=== PATIENT | female | born 2000 | race Caucasian/White ===

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

== ENCOUNTER 2022-08-17 16:51 | Emergency (ER) | payer MEDICAID, OTHER ==
[~2022-08-17] VITALS: Ht 160 cm; Wt 81.2 kg
[2022-08-17 16:59] VITALS: BP 115/70
--- NOTE | 2022-08-17 19:22 | NUR ---
AMA CALIXTO examining patient.
[2022-08-17 19:52] LABS: BASOPHILS # (AUTO) 0.1 K/uL (0.00-0.22); BASOPHILS % (AUTO) 0.5 % (0.0-2.0); EOSINOPHILS # (AUTO) 0.2 K/uL (0-0.4); EOSINOPHILS % (AUTO) 1.6 % (0.0-4.0); HEMATOCRIT 38.4 % (36-48); LYMPHOCYTES # (AUTO) 2.7 K/uL (2.5-16.5); LYMPHOCYTES % (AUTO) 21.7 % (20.5-51.1); MEAN CORPUSCULAR HEMOGLOBIN 29 pg (27-31); MEAN CORPUSCULAR HGB CONC 34 g/dL (33-37); MEAN CORPUSCULAR VOLUME 86.5 fL (80-94); MONOCYTES # (AUTO) 1.1 K/uL (0.8-1.0); NEUTROPHILS # (AUTO) 8.3 K/uL (1.8-7.7); NEUTROPHILS % (AUTO) 67.2 % (42.2-75.2); PLATELET COUNT (AUTO) 324 K/uL (140-450); RED BLOOD CELL COUNT(AUTO) 4.44 MIL/uL (4.20-5.40); RED CELL DISTRIBUTION WIDTH 12.3 % (11.6-13.7); WHITE BLOOD COUNT (AUTO) 12.3 K/uL (4.5-11.0)
[2022-08-17 19:59] LABS: ALBUMIN 3.5 g/dL (3.4-5.0); ANION GAP 11.9 (8-16); CARBON DIOXIDE 28.1 mmol/L (21-32); CREATININE 0.7 mg/dL (0.6-1.3); TOTAL BILIRUBIN 0.3 mg/dL (0.0-1.0)
--- NOTE | 2022-08-17 21:42 | NUR ---
COVID-19, flu and strep swabs collected and sent to lab.
[2022-08-17 22:47] LABS: APPEARANCE,URINE CLEAR (CLEAR); BILIRUBIN,URINE NEGATIVE (NEGATIVE); BLOOD, URINE 2+ (NEGATIVE); COLOR,URINE YELLOW (YELLOW); LEUKOCYTE ESTERASE ,URINE NEGATIVE (NEGATIVE); NITRITE, URINE NEGATIVE (NEGATIVE); UGLUCOSE NEGATIVE (NEGATIVE)
--- NOTE | 2022-08-17 23:40 | NUR ---
PT TAKEN TO BED 2
[2022-08-17] MEDS ORDERED: CEFD300C3 PO (23:57)
[2022-08-17] MEDS ORDERED: NAPR-54 PO (23:57)
--- NOTE | 2022-08-22 16:56 | NUR ---
LATE ENTRY. RECEIVED POSITIVE THROAT CULTURE. FORM GIVEN TO DR PEÑA. TREATMENT APPROPRIATE. FORM PLACED IN BINDER
[2022-09-14] MEDS ORDERED: FLUC150T PO (18:02)
== END 2022-08-18 00:15 | disposition home or self-care (01) ==
LOC: MED 16:51
DX: J02.9 Acute pharyngitis, unspecified (principal); R10.31 Right lower quadrant pain; R05.9 Cough, unspecified; Z20.822 Contact with and (suspected) exposure to COVID-19; Z79.1 Long term (current) use of non-steroidal anti-inflammatories (NSAID); Z79.2 Long term (current) use of antibiotics
CPT/HCPCS: 36415; 80053; 81001; 81025; 83690; 85025; 87081; 87086; 99284

== ENCOUNTER 2022-09-11 04:25 | Emergency (ER) | payer OTHER ==
[~2022-09-11] VITALS: Ht 162.6 cm; Wt 79.4 kg
[~2022-09-11 04:25] MED LIST: CEFD300C3 PO; NAPR-54 PO
[2022-09-11 04:46] VITALS: BP 117/63
--- NOTE | 2022-09-11 04:49 | NUR ---
pt to lobby.
[2022-09-11 05:10] LABS: APPEARANCE,URINE SL CLOUDY (CLEAR); BILIRUBIN,URINE NEGATIVE (NEGATIVE); BLOOD, URINE 1+ (NEGATIVE); COLOR,URINE YELLOW (YELLOW); LEUKOCYTE ESTERASE ,URINE 1+ (NEGATIVE); NITRITE, URINE NEGATIVE (NEGATIVE); UGLUCOSE NEGATIVE (NEGATIVE)
[2022-09-11 05:16] LABS: RBC,URINE 0-5 /HPF (0-5)
--- NOTE | 2022-09-11 05:22 | NUR ---
PER LAB NOT ENOUGH URINE FOR GC, PT STATES SHE WILL DRINK MORE WATER AND LET US KNOW WHEN SHES ABLE TO URINATE.
--- NOTE | 2022-09-11 06:12 | NUR ---
Patient taken to bed 11.
--- NOTE | 2022-09-11 06:30 | NUR ---
Dr. Donahue examining patient.
--- NOTE | 2022-09-11 07:05 | NUR ---
Pelvic exam performed by Dr. Donahue with RUBEN Hunt at bedside for entire examination. Patient tolerated procedure well. Patient assisted to position of comfort after examination.
[2022-09-11] MEDS ORDERED: IBUP-2213 PO (08:56)
[2022-09-11] MEDS ORDERED: METR-435 PO (08:56)
[2022-09-11 09:21] VITALS: BP 123/60
--- NOTE | 2022-09-11 09:22 | NUR ---
Patient discharged with v/s stable. Written and verbal after care instructions given and explained. Patient alert, oriented and verbalized understanding of instructions. Ambulatory with steady gait. All questions addressed prior to discharge. ID band removed. Patient advised to follow up with PMD. Rx of IBUPROFEN, METRONIDAZOLE given. Patient educated on indication of medication including possible reaction and side effects. Opportunity to ask questions provided and answered.
[2022-09-14] MEDS ORDERED: FLUC150T PO (18:02)
--- NOTE | 2022-09-14 18:25 | NUR ---
LATE ENTRY. RECEIVED POSITIVE CULTURE RESULTS. FORM GIVEN TO DR MITCHELL. NEW RX OF DIFLUCAN SENT TO PTS [facility]ARM[facility]Y. DR MITCHELL ATTEMPTED TO CALL PT, NO ANSWER. 2ND ATTEMPT TO CALL PT AT [phone], LEFT MESSAGE TO RETURN CALL *START NEW RX AFTER METRONIDAZOLE.
== END 2022-09-11 09:21 | disposition home or self-care (01) ==
LOC: MED 04:25
DX: N76.0 Acute vaginitis (principal); B96.89 Other specified bacterial agents as the cause of diseases classified elsewhere; J45.909 Unspecified asthma, uncomplicated; F12.90 Cannabis use, unspecified, uncomplicated; Z79.899 Other long term (current) drug therapy; Z98.890 Other specified postprocedural states
CPT/HCPCS: 81001; 81025; 87070; 87086; 87205; 87210; 87491; 99283

== ENCOUNTER 2023-02-08 11:12 | Inpatient (IN) | payer OTHER ==
[~2023-02-08] VITALS: Ht 162.6 cm; Wt 85.7 kg
[~2023-02-08 11:12] MED LIST changes: +FLUC150T PO; +IBUP-2213 PO; +METR-435 PO
[2023-02-08 11:18] VITALS: BP 118/92; PULSE 63; RESP 14; TEMP 98.2; O2SAT 98
[2023-02-08 11:44] LABS: BASOPHILS # (AUTO) 0.1 K/uL (0.00-0.22); BASOPHILS % (AUTO) 0.4 % (0.0-2.0); EOSINOPHILS % (AUTO) 0.1 % (0.0-4.0); HEMATOCRIT 42.8 % (36-48); HEMOGLOBIN 14.5 g/dL (12.0-16.0); LYMPHOCYTES # (AUTO) 1.2 K/uL (2.5-16.5); LYMPHOCYTES % (AUTO) 5.6 % (20.5-51.1); MEAN CORPUSCULAR HEMOGLOBIN 29 pg (27-31); MEAN CORPUSCULAR HGB CONC 34 g/dL (33-37); MEAN CORPUSCULAR VOLUME 86.5 fL (80-94); MONOCYTES # (AUTO) 0.9 K/uL (0.8-1.0); MONOCYTES % (AUTO) 4.3 % (1.7-9.3); NEUTROPHILS # (AUTO) 19.9 K/uL (1.8-7.7); NEUTROPHILS % (AUTO) 89.6 % (42.2-75.2); PLATELET COUNT (AUTO) 307 K/uL (140-450); RED BLOOD CELL COUNT(AUTO) 4.95 MIL/uL (4.20-5.40); WHITE BLOOD COUNT (AUTO) 22.2 K/uL (4.5-11.0)
[2023-02-08 12:01] LABS: ANION GAP 10.2 (8-16); CALCIUM 9.4 mg/dL (8.5-10.1); CARBON DIOXIDE 25.4 mmol/L (21-32); CREATININE 0.7 mg/dL (0.6-1.3); POTASSIUM 3.6 mmol/L (3.5-5.1); TOTAL BILIRUBIN 0.4 mg/dL (0.0-1.0); TOTAL PROTEIN, SERUM 7.6 g/dL (6.4-8.2)
[2023-02-08] MEDS ORDERED: PROCHLORPERAZINE 10 MG/2 ML VIAL IVP ONE (12:20)
[2023-02-08] MEDS ORDERED: KETOROLAC 30 MG/ML VIAL IVP ONE (12:20)
[2023-02-08] MEDS ORDERED: diphenhydrAMINE 50 MG/ML VIAL IVP ONE (12:20)
[2023-02-08] MEDS ORDERED: NACL 0.9% 1,000 ML IV ONE ×2 (12:25→14:10)
[2023-02-08] MEDS ORDERED: MORPHINE SULFATE 4 MG/ML SYR IVP ONE (13:30)
[2023-02-08] MEDS ORDERED: PIPERACILLIN/TAZOBACTAM 3.375 GM in DEXTROSE 5% 50 ML IV ONE (13:30)
[2023-02-08] MEDS ORDERED: PIPERACILLIN/TAZOBACTAM 3.375 GM VIAL IV ONE ×2 (14:03→22:18)
[2023-02-08 14:23] LABS: INR 0.99 (0.8-1.2); PARTIAL THROMBOPLASTIN TIME 24.9 secs (22-35.6); PROTHROMBIN TIME 10.4 secs (10.8-13.4)
[2023-02-08 14:30] LABS: LACTIC ACID 1.2 mmol/L (0.4-2.0)
[2023-02-08] MEDS ORDERED: MORPHINE SULFATE 4 MG/ML SYR IVP PRN (15:45)
[2023-02-08] MEDS ORDERED: MAG SULF 2000 MG/WATER PREMIX 50 ML IV PRN (15:45)
[2023-02-08] MEDS ORDERED: ZOLPIDEM 5 MG TAB PO PRN (15:45)
[2023-02-08] MEDS ORDERED: KCL 20 MEQ IN 100 mL PREMIX 200 ML IV PRN (15:45)
[2023-02-08] MEDS ORDERED: ACETAMINOPHEN 325 MG TAB PO PRN (15:45)
[2023-02-08] MEDS ORDERED: HYDROcodone/APAP 5/325 MG 1 TAB TAB PO PRN (15:45)
[2023-02-08] MEDS ORDERED: POTASSIUM CHLORIDE 10 MEQ TABER PO PRN (15:45)
[2023-02-08] MEDS ORDERED: ONDANSETRON 4 MG/2 ML VIAL IVP PRN ×2 (15:45→17:05)
[2023-02-08] MEDS ORDERED: LORazepam 1 MG TAB PO PRN (15:45)
[2023-02-08] MEDS: DEXT 5% /NACL 0.9% 1,000 ML IV SCH ×2 (16:08→23:33)
[2023-02-08] MEDS ORDERED: fentaNYL citrate 0.05 MG/ML VIAL ONE (16:53)
[2023-02-08] MEDS ORDERED: SUCCINYLCHOLINE CHLORIDE 200 MG/10 ML VIAL IVP ONE (16:53)
[2023-02-08] MEDS ORDERED: PROPOFOL 200 MG/20 ML VIAL IV ONE (16:53)
[2023-02-08] MEDS ORDERED: diphenhydrAMINE 50 MG/ML VIAL IVP PRN (17:05)
[2023-02-08] MEDS ORDERED: HYDROmorphone 1 MG/ML AMP IVP PRN (17:05)
[2023-02-08] MEDS ORDERED: MEPERIDINE 25 MG/ML SYR IVP PRN (17:05)
[2023-02-08] MEDS: LACTATED RINGERS 1,000 ML IV SCH (17:05)
[2023-02-08] MEDS ORDERED: BUPIVACAINE-MPF 0.25% 30 ML VIAL INJ ONE (17:05)
[2023-02-08] MEDS ORDERED: SEVOFLURANE 250 ML BTL INH ONE (18:00)
[2023-02-08] MEDS ORDERED: ONDANSETRON 4 MG/2 ML VIAL ONE (18:12)
[2023-02-08] MEDS ORDERED: DEXAMETHASONE 4 MG/ML VIAL ONE (18:13)
[2023-02-08] MEDS ORDERED: ROCURONIUM 50 MG/5 ML VIAL IV ONE (18:13)
[2023-02-08] MEDS ORDERED: LIDOCAINE/EPI MPF 1%1:200000 30 ML VIAL INJ ONE (18:14)
[2023-02-08] MEDS ORDERED: ePHEDrine 50 MG/ML VIAL ONE (18:19)
[2023-02-08] MEDS ORDERED: MEPERIDINE 50 MG/ML SYR ONE (18:28)
[2023-02-08] MEDS ORDERED: SUGAMMADEX SODIUM 200 MG/2 ML VIAL IV ONE (18:45)
[2023-02-08 19:50] VITALS: BP 122/66; PULSE 81; RESP 18; TEMP 98; O2SAT 96
[2023-02-08 21:50] VITALS: BP 122/66; PULSE 81; RESP 18; TEMP 98.1; O2SAT 96
[2023-02-08] MEDS: PIPERACILLIN/TAZOBACTAM 3.375 GM in DEXTROSE 5% 50 ML IV SCH (22:27)
[2023-02-09] VITALS: BP 118/62; PULSE 79; RESP 18; TEMP 98.2; O2SAT 97
[2023-02-09] MEDS: LACTATED RINGERS 1,000 ML IV SCH (01:25)
[2023-02-09 04:00] VITALS: BP 110/65; PULSE 80; RESP 18; TEMP 98; O2SAT 96
[2023-02-09] MEDS ORDERED: PIPERACILLIN/TAZOBACTAM 3.375 GM VIAL IV ONE (05:12)
[2023-02-09] MEDS: PIPERACILLIN/TAZOBACTAM 3.375 GM in DEXTROSE 5% 50 ML IV SCH ×4 (05:22→11:38)
[2023-02-09 06:22] LABS: BASOPHILS % (AUTO) 0.1 % (0.0-2.0); HEMATOCRIT 37.5 % (36-48); HEMOGLOBIN 12.7 g/dL (12.0-16.0); LYMPHOCYTES # (AUTO) 1.3 K/uL (2.5-16.5); LYMPHOCYTES % (AUTO) 9.8 % (20.5-51.1); MEAN CORPUSCULAR HEMOGLOBIN 29 pg (27-31); MEAN CORPUSCULAR HGB CONC 34 g/dL (33-37); MEAN CORPUSCULAR VOLUME 86.7 fL (80-94); MONOCYTES # (AUTO) 0.7 K/uL (0.8-1.0); MONOCYTES % (AUTO) 5.7 % (1.7-9.3); NEUTROPHILS % (AUTO) 84.4 % (42.2-75.2); PLATELET COUNT (AUTO) 259 K/uL (140-450); RED BLOOD CELL COUNT(AUTO) 4.33 MIL/uL (4.20-5.40); RED CELL DISTRIBUTION WIDTH 12.1 % (11.6-13.7); WHITE BLOOD COUNT (AUTO) 13.1 K/uL (4.5-11.0)
[2023-02-09 06:30] LABS: ANION GAP 10.8 (8-16); CALCIUM 8.7 mg/dL (8.5-10.1); CREATININE 0.7 mg/dL (0.6-1.3); POTASSIUM 3.8 mmol/L (3.5-5.1)
[2023-02-09 08:07] VITALS: BP 104/58; PULSE 58; RESP 18; TEMP 98.7; O2SAT 97
[2023-02-09 09:03] VITALS: PULSE 58; RESP 18
[2023-02-09] MEDS ORDERED: DOCU1TAB PO (10:41)
[2023-02-09] MEDS ORDERED: TRAM50TA3 PO (10:41)
[2023-02-09 12:34] VITALS: BP 112/64; PULSE 92; RESP 18; TEMP 96.8
== END 2023-02-09 14:55 | disposition home or self-care (01) | DRG 710 ==
LOC: MED 11:12 → MMU 15:48 → MTU 19:55
PROVIDERS: ADMIT Internal Medicine; ATTEND Internal Medicine
PROC: 0DTJ4ZZ Resection of Appendix, Percutaneous Endoscopic Approach (ICD-10-PCS; principal; 2023-02-08 17:00)
DX: A41.9 Sepsis, unspecified organism (principal); E87.1 Hypo-osmolality and hyponatremia; K35.890 Other acute appendicitis without perforation or gangrene; J45.909 Unspecified asthma, uncomplicated; F12.90 Cannabis use, unspecified, uncomplicated; K59.00 Constipation, unspecified; K38.1 Appendicular concretions
CPT/HCPCS: 36415; 80048; 80053; 82374; 83605; 83690; 83735; 84703; 85025; 85610; 85730; 86886; 86900; 86901; 87040; 87081; 93005; 96361; 96365; 96375; 99285; J0330; J0780; J1100; J1200; J1885; J2001; J2175; J2270; J2405; J2543; J2704; J3010; J3475; J3490; J7060; Q9967

== ENCOUNTER 2023-08-21 19:02 | Emergency (ER) | payer OTHER ==
[~2023-08-21] VITALS: Ht 162.6 cm; Wt 92.1 kg
[~2023-08-21 19:02] MED LIST changes: -CEFD300C3 PO; +DOCU1TAB PO; -FLUC150T PO; -IBUP-2213 PO; -METR-435 PO; -NAPR-54 PO; +TRAM50TA3 PO
[2023-08-21 19:12] VITALS: BP 114/75; PULSE 79; RESP 18; TEMP 98.5; O2SAT 98
[2023-08-21 23:55] LABS: APPEARANCE,URINE SL CLOUDY (CLEAR); BILIRUBIN,URINE NEGATIVE (NEGATIVE); BLOOD, URINE 3+ (NEGATIVE); COLOR,URINE YELLOW (YELLOW); LEUKOCYTE ESTERASE ,URINE 1+ (NEGATIVE); NITRITE, URINE NEGATIVE (NEGATIVE); PROTEIN,URINE NEGATIVE (NEGATIVE); UGLUCOSE NEGATIVE (NEGATIVE); UROBILINOGEN,URINE 0.2 EU/dL (0.2 - 1)
[2023-08-21 23:59] LABS: BACTERIA,URINE >30 (MANY) /HPF (None Seen); MUCUS,URINE 2+ /LPF (None Seen); SQUAMOUS EPITHELIAL CELL,UR 0-3 (FEW) /LPF (0-3 (FEW))
== END 2023-08-21 23:46 | disposition left against medical advice (07) ==
LOC: MED 19:02
DX: R10.2 Pelvic and perineal pain (principal); Z79.899 Other long term (current) drug therapy
CPT/HCPCS: 81001; 81025; 87086; 99283